=== PATIENT | male | born 1970 | race Caucasian/White ===

== ENCOUNTER 2017-11-28 16:14 | Inpatient (IN) | payer OTHER ==
[2017-11-28 16:33] VITALS: BMI 22.8
--- NOTE | 2017-11-28 16:46 | HP ---
COWS - Scale Resting Pulse: 0= [place] 80 or Below Sweatin= Beads of Sweat on Face Restless Observation: 3= Extraneous Movement Pupil Size: 0= Normal to Room Light Bone or Joint Aches: 1= Mild Discomfort Runny Nose/ Eye Tearin= Runny Nose/Eyes GI Upset > 30mins: 1= Stomach Cramp Tremor Observation: 2= Slight Tremor Visible Yawning Observation: 4= Several Times/Minute Anxiety or Irritability: 2=Irritable/Anxious Goose Flesh Skin: 3=Piloerection COWS Score: 21 CIWA Score - CIWA Score Nausea/Vomitin Muscle Tremors: 4-Moderate,w/Arms Extend Anxiety: 4-Mod. Anxious/Guarded Agitation: 1-Slight > Activity Paroxysmal Sweats: 4-Forehead w/Sweat Beads Orientation: 0-Oriented Tacttile Disturbances: 0-None Auditory Disturbances: 1-Very Mild Visual Disturbances: 1-Very Mild Sensitivity Headache: 1-Very Mild CIWA-Ar Total Score: 18 Admission ROS BHS - HPI Chief Complaint: I am here for detox Allergies/Adverse Reactions: Allergies Allergy/AdvReac Type Severity Reaction Status Date / Time No Known Allergies Allergy Verified 11/28/17 17:04 History of Present Illness: 47 yo male with alcohol, heroin, and cocaine dependence, with occasional use of PCP. Reports hx of 20+ year of alcohol and heroin use. Last detox and rehab 17 years ago at [facility]. Longest period of sobriety, one year. Exam Limitations: No Limitations - Ebola screening Have you traveled outside of the country in the last 21 days: No Have you had contact with anyone from an Ebola affected area: No Have you been sick,other than usual withdrawal symptoms: No Do you have a fever: No - Review of Systems Constitutional: Chills, Loss of Appetite, Night Sweats, Changes in sleep EENT: reports: Tearing Respiratory: reports: No Symptoms reported Cardiac: reports: Lightheadedness GI: reports: Poor Appetite : reports: No Symptoms Reported Musculoskeletal: reports: Joint Pain Integumentary: reports: No Symptoms Reported Neuro: reports: Headache Endocrine: reports: Intolerance to Cold Hematology: reports: No Symptoms Reported Psychiatric: reports: Orientated x3, Anxious, Depressed Other Systems: Reviewed and Negative Patient History - Patient Medical History Hx Anemia: No Hx Asthma: Yes (no medications ) Hx Chronic Obstructive Pulmonary Disease (COPD): No Hx Cancer: No Hx Cardiac Disorders: No Hx Congestive Heart Failure: No Hx Hypertension: No Hx Hypercholesterolemia: No Hx Pacemaker: No HX Cerebrovascular Accident: No Hx Seizures: No Hx Dementia: No Hx Diabetes: No Hx Gastrointestinal Disorders: No Hx Liver Disease: No Hx Genitourinary Disorders: No Hx Sexually Transmitted Disorders: No Hx Renal Disease (ESRD): No Hx Thyroid Disease: No Hx Human Immunodeficiency Virus (HIV): No (Last test Oct 2017 [facility]) Hx Hepatitis C: No Hx Depression: No Hx Suicide Attempt: No Hx Bipolar Disorder: No Hx Schizophrenia: No - Patient Surgical History Past Surgical History: No Hx Neurologic Surgery: No Hx Cataract Extraction: No Hx Cardiac Surgery: No Hx Lung Surgery: Yes (hx of puncture lung ) Hx Breast Surgery: No Hx Breast Biopsy: No Hx Abdominal Surgery: No Hx Appendectomy: No Hx Cholecystectomy: No Hx Genitourinary Surgery: No Hx Section: No Hx Orthopedic Surgery: No Hx Hysterectomy: No Anesthesia Reaction: No - PPD History Previous Implant?: Yes Documented Results: Negative w/o proof PPD to be Administered?: Yes - Reproductive History Patient is a Female of Child Bearing Age (11 -55 yrs old): No - Smoking Cessation Smoking history: Current some day smoker Have you smoked in the past 12 months: Yes Aproximately how many cigarettes per day: 5 Cigars Per Day: 0 Hx Chewing Tobacco Use: No Initiated information on smoking cessation: Yes 'Breaking Loose' booklet given: 11/28/17 - Substance & Tx. History Hx Alcohol Use: Yes Hx Substance Use: Yes Substance Use Type: Cocaine, Heroin, Opiates Hx Substance Use Treatment: Yes - Substances Abused Alcohol Route: Oral Frequency: Daily Amount used: 1 - 4 beers Age of first use: 16 Date of Last Use: 11/27/17 Heroin Route: Inhalation Frequency: Daily Amount used: 8 - 10 bags Age of first use: 23 Date of Last Use: 11/27/17 Cocaine Route: Inhalation Frequency: 1-3 times last 30 days Amount used: $10 Age of first use: 39 Date of Last Use: 11/27/17 PCP Route: Smoking Frequency: 1-3 times last 30 days Amount used: 1 blunt, $10 Age of first use: 20 Date of Last Use: 11/16/17 Family Disease History - Family Disease History Family Disease History: Heart Disease: Father (, [place] / no drug use ), Other: Father, Mother (alieve and well / no drug use ) Admission Physical Exam [facility] - Vital Signs Vital Signs: Vital Signs - 24 hr 11/28/17 16:29 Temperature 97.5 F L Pulse Rate 68 Respiratory 20 Rate Blood Pressure 124/57 - Physical General Appearance: Yes: No Apparent Distress, Appropriately Dressed, Sweating, Anxious HEENTM: Yes: Hearing grossly Normal, Normal ENT Inspection, Normocephalic, Normal Voice, FERNIE, Pharynx Normal Respiratory: Yes: Chest Non-Tender, Lungs Clear, Normal Breath Sounds, No Respiratory Distress, No Accessory Muscle Use Neck: Yes: Within Normal Limits, No masses,lesions,Nodules, Trachea in good position Breast: Yes: Breast Exam Deferred Cardiology: Yes: Regular Rhythm, Regular Rate, S1, S2 Abdominal: Yes: Normal Bowel Sounds, Non Tender, Flat, Soft Genitourinary: Yes: Within Normal Limits Back: Yes: Within Normal Limits Musculoskeletal: Yes: full range of Motion, Gait Steady, Joint swelling Extremities: Yes: Within Normal Limits, Normal Capillary Refill, Normal Inspection, Normal Range of Motion, Non-Tender, Tremors Neurological: Yes: product management analyst II-XII NML intact, Fully Oriented, Alert, Motor Strength 5/5, Normal Response, Depressed Affect Integumentary: Yes: Normal Color, Dry, Warm, Diaphoresis, Other (poor skin turgor) Lymphatic: Yes: Within Normal Limits - Diagnostic (1) Alcohol dependence with uncomplicated withdrawal Current Visit: Yes Status: Acute (2) Opioid dependence with withdrawal Current Visit: Yes Status: Acute (3) Heroin dependence Current Visit: Yes Status: Acute (4) PCP abuse, episodic Current Visit: Yes Status: Acute (5) Cocaine abuse Current Visit: Yes Status: Acute (6) Dehydration Current Visit: Yes Status: Acute (7) Anxious mood Current Visit: Yes Status: Acute (8) Depressed mood Current Visit: Yes Status: Acute Cleared for Admission [facility] - Detox or Rehab [facility] Level of Care: Medically Managed Detox Regimen/Protocol: Methadone/Librium [facility] Breath Alcohol Content Breath Alcohol Content: 0 Urine Drug Screen - Results Drug Screen Negative: No Urine Drug Screen Results: KYM-Cocaine, OPI-Opiates, PCP-Phencyclidine, OXY- Oxycodone
[2017-11-28] MEDS ORDERED: hydrOXYzine PAMOATE 50 MG CAPSULE (FP) PO PRN (17:04)
[2017-11-28] MEDS ORDERED: NICOTINE POLACRILEX 2 MG GUM BC PRN (17:04)
[2017-11-28] MEDS ORDERED: chlordiazePOXIDE HCL 25 MG CAPSULE PO ONE (17:04)
[2017-11-28] MEDS ORDERED: LOPERAMIDE HCL 2 MG CAPSULE PO PRN (17:04)
[2017-11-28] MEDS ORDERED: chlordiazePOXIDE HCL 25 MG CAPSULE PO PRN (17:04)
[2017-11-28] MEDS ORDERED: MAGNESIUM HYDROX 2400MG/30ML ORAL SUSPENSION 30 ML CUP PO PRN (17:04)
[2017-11-28] MEDS ORDERED: guaiFENesin/D-METHORPHAN HB 10 ML UNIT-DOSE CUPS PO PRN (17:04)
[2017-11-28] MEDS ORDERED: MENTHOL/PHENOL 1 EACH UD MM PRN (17:04)
[2017-11-28] MEDS ORDERED: ACETAMINOPHEN 325 MG TABLET (FP) PO PRN (17:04)
[2017-11-28] MEDS ORDERED: IBUPROFEN 400 MG TABLET (FP) PO PRN (17:04)
[2017-11-28] MEDS ORDERED: METHADONE HCL 10 MG TABLET (FOR DETOX USE ONLY) PO ONE ×2 (17:04→23:00)
[2017-11-28] MEDS ORDERED: P-EPHED 60MG/TRIPROLIDI 2.5MG TABLET PO PRN (17:04)
[2017-11-28] MEDS ORDERED: MAG HYDROX/AL HYDROX/SIMETH 30 ML UNIT-DOSE CUP PO PRN (17:04)
[2017-11-28] MEDS ORDERED: MAGNESIUM CITRATE 300 ML BOTTLE PO PRN (17:04)
[2017-11-28] MEDS ORDERED: METHADONE HCL 10 MG TABLET (FOR DETOX USE ONLY) ONE (21:51)
[2017-11-28] MEDS: NICOTINE 14 MG/24 HOURS TOPICAL PATCH TD SCH (21:52)
[2017-11-28] MEDS: chlordiazePOXIDE HCL 25 MG CAPSULE PO SCH (22:00)
[2017-11-28] MEDS: THIAMINE HCL 100 MG TABLET (FP) PO SCH (22:00)
[2017-11-28 23:43] LABS: URINE APPEARANCE CLEAR; URINE BILIRUBIN NEGATIVE (NEGATIVE); URINE BLOOD NEGATIVE (NEGATIVE); URINE COLOR YELLOW; URINE GLUCOSE (UA) NEGATIVE (NEGATIVE); URINE KETONE NEGATIVE (NEGATIVE); URINE LEUK ESTERASE NEGATIVE (NEGATIVE); URINE NITRITE NEGATIVE (NEGATIVE); URINE PROTEIN NEGATIVE (NEGATIVE); URINE UROBILINOGEN NEGATIVE mg/dL (0.2-1.0)
[2017-11-29] MEDS: chlordiazePOXIDE HCL 25 MG CAPSULE PO SCH ×4 (06:05→22:36)
--- NOTE | 2017-11-29 08:49 | EKG ---
Test Reason : Blood Pressure : / mmHG Vent. Rate : 050 BPM Atrial Rate : 050 BPM P-R Int : 128 ms QRS Dur : 082 ms QT Int : 442 ms P-R-T Axes : 072 065 056 degrees QTc Int : 402 ms SINUS BRADYCARDIA OTHERWISE NORMAL ECG NO PREVIOUS ECGS AVAILABLE Confirmed by Omar Anderson ([id number]) on 11/29/2017 8:48:42 AM Referred By: Jose Luis Maria Confirmed By:Omar Anderson
--- NOTE | 2017-11-29 09:18 | CONSULT ---
[facility] Psychiatric Consult - Data Date of interview: 11/29/17 Admission source: [facility] Identifying data: This is 47 years old male with no psychiatric hospitalization hisatory intoxicated with: Alcohol, Opioids, Heroin, PCP, Cocaine Substance Abuse History: Smoking history: Current some day smoker. Have you smoked in the past 12 months: Yes. Aproximately how many cigarettes per day: 5. Cigars Per Day: 0. Hx Chewing Tobacco Use: No. Initiated information on smoking cessation: Yes. 'Breaking Loose' booklet given: 11/28/17. - Substance & Tx. History. Hx Alcohol Use: Yes. Hx Substance Use: Yes. Substance Use Type : Cocaine, Heroin, Opiates. Hx Substance Use Treatment: Yes. - Substances Abused. Alcohol. Route: Oral. Frequency: Daily. Amount used: 1 - 4 beers. Age of first use: 16. Date of Last Use: 11/27/17. Heroin. Route: Inhalation. Frequency: Daily. Amount used: 8 - 10 bags. Age of first use: 23. Date of Last Use: 11/27/17. Cocaine. Route: Inhalation. Frequency: 1- 3 times last 30 days. Amount used: $10. Age of first use: 39. Date of Last Use: 11/27/17. PCP. Route: Smoking. Frequency: 1-3 times last 30 days. Amount used: 1 blunt, $10. Age of first use: 20. Date of Last Use: 11/16/17 Medical History: Denies Psychiatric History: Alex purvis history of anxiety and depression, reports no medications taking prior to admission Physical/Sexual Abuse/Trauma History: Denies Additional Comment: Observation. Detox Unit Care Protocol Mental Status Exam - Mental Status Exam Alert and Oriented to: Person Cognitive Function: Fair Patient Appearance: Unkempt Mood: Sad Affect: Flat Patient Behavior: Sedated Speech Pattern: Delayed Voice Loudness: Mildly Loud Thought Process: Circumstantial Thought Disorder: Being Controlled Hallucinations: Denies Suicidal Ideation: Denies Homicidal Ideation: Denies Insight/Judgement: Fair Sleep: Difficulty falling asleep Appetite: Fair Muscle strength/Tone: Mild Hypotonicity Gait/Station: Shuffling Additional Comments: Observation. Detox Unit Care Protocol Psychiatric Findings - Problem List ([place] 1, 2,3) (1) Drug-induced mood disorder Current Visit: Yes Status: Acute (2) Alcohol dependence with uncomplicated withdrawal Current Visit: Yes Status: Acute (3) Anxious mood Current Visit: Yes Status: Acute (4) Heroin dependence Current Visit: Yes Status: Acute (5) Opioid dependence with withdrawal Current Visit: Yes Status: Acute (6) Cocaine abuse Current Visit: Yes Status: Chronic (7) PCP abuse, episodic Current Visit: Yes Status: Chronic - Initial Treatment Plan Initial Treatment Plan: Observation. Detox Unit Care Protocol
[2017-11-29] MEDS ORDERED: METHADONE HCL 10 MG TABLET (FOR DETOX USE ONLY) PO SCH (10:00)
[2017-11-29] MEDS: PRENATAL VITAMINS W/ FOLIC ACID TABLET (FP) PO SCH (10:06)
[2017-11-29] MEDS: NICOTINE 14 MG/24 HOURS TOPICAL PATCH TD SCH (10:07)
[2017-11-29 10:23] LABS: HEMATOCRIT 42.4 % (35.4-49); HEMOGLOBIN 13.6 GM/dL (11.7-16.9); MCH 29.7 pg (25.7-33.7); MCHC 32.1 g/dl (32.0-35.9); MEAN CELL VOLUME 92.5 fl (80-96); PLATELET COUNT 118 K/MM3 (134-434); RBC 4.59 M/mm3 (4.00-5.60); RDW 13.7 % (11.9-15.9); WHITE BLOOD COUNT 8.4 K/mm3 (4.0-10.0)
[2017-11-29 10:26] LABS: ALBUMIN 3.3 g/dl (3.4-5.0); ANION GAP 3 (8-16); BLOOD UREA NITROGEN 18 mg/dL (7-18); CALCIUM 8.1 mg/dL (8.5-10.1); CHLORIDE 112 mmol/L (98-107); CO2 27 mmol/L (21-32); GLUCOSE,RANDOM 93 mg/dL (74-106); POTASSIUM 4.2 mmol/L (3.5-5.1); SODIUM 142 mmol/L (136-145)
[2017-11-29 10:30] LABS: ALK PHOS 76 U/L (45-117); BILIRUBIN,TOTAL 0.9 mg/dL (0.2-1.0); CREATININE 0.8 mg/dL (0.7-1.3); SGOT/AST 16 U/L (15-37); SGPT/ALT 24 U/L (12-78)
--- NOTE | 2017-11-29 13:19 | PN ---
[facility] CIWA - CIWA Score Nausea/Vomitin Muscle Tremors: 4-Moderate,w/Arms Extend Anxiety: 4-Mod. Anxious/Guarded Agitation: 3 Paroxysmal Sweats: 3 Orientation: 0-Oriented Tacttile Disturbances: 0-None Auditory Disturbances: 0-None Visual Disturbances: 0-None Headache: 0-None Present CIWA-Ar Total Score: 16 S COWS - Scale Resting Pulse: 0= [place] 80 or Below Sweatin=Flushed/Facial Moisture Restless Observation: 1= Difficult to Sit Still Pupil Size: 0= Normal to Room Light Bone or Joint Aches: 1= Mild Discomfort Runny Nose/ Eye Tearin= Nasal Congestion GI Upset > 30mins: 2= Nausea/Diarrhea Tremor Observation of Outstretched Hands: 2= Slight Tremor Visible Yawning Observation: 0= None Anxiety or Irritability: 2=Irritable/Anxious Goose Flesh Skin: 0=Smooth Skin COWS Score: 11 S Progress Note (SOAP) Subjective: Tremors, sleep disturbance, Objective: 11/29/17 13:18 Vital Signs Temperature 98.1 F 11/29/17 09:23 Pulse Rate 54 L 11/29/17 09:23 Respiratory Rate 16 11/29/17 09:23 Blood Pressure 147/57 11/29/17 09:23 O2 Sat by Pulse Oximetry (%) Laboratory Last Values WBC 8.4 K/mm3 (4.0-10.0) 11/29/17 07:00 RBC 4.59 M/mm3 (4.00-5.60) 11/29/17 07:00 Hgb 13.6 GM/dL (11.7-16.9) 11/29/17 07:00 Hct 42.4 % (35.4-49) 11/29/17 07:00 MCV 92.5 fl (80-96) 11/29/17 07:00 MCH 29.7 pg (25.7-33.7) 11/29/17 07:00 MCHC 32.1 g/dl (32.0-35.9) 11/29/17 07:00 RDW 13.7 % (11.9-15.9) 11/29/17 07:00 Plt Count 118 K/MM3 (134-434) L 11/29/17 07:00 MPV 12.0 fl (7.5-11.1) H 11/29/17 07:00 Sodium 142 mmol/L (136-145) 11/29/17 07:00 Potassium 4.2 mmol/L (3.5-5.1) 11/29/17 07:00 Chloride 112 mmol/L (98-107) H 11/29/17 07:00 Carbon Dioxide 27 mmol/L (21-32) 11/29/17 07:00 Anion Gap 3 (8-16) L 11/29/17 07:00 BUN 18 mg/dL (7-18) 11/29/17 07:00 Creatinine 0.8 mg/dL (0.7-1.3) 11/29/17 07:00 Creat Clearance w eGFR > 60 (>60) 11/29/17 07:00 Random Glucose 93 mg/dL (74-106) 11/29/17 07:00 Calcium 8.1 mg/dL (8.5-10.1) L 11/29/17 07:00 Total Bilirubin 0.9 mg/dL (0.2-1.0) 11/29/17 07:00 AST 16 U/L (15-37) 11/29/17 07:00 ALT 24 U/L (12-78) 11/29/17 07:00 Alkaline Phosphatase 76 U/L (45-117) 11/29/17 07:00 Total Protein 6.0 g/dl (6.4-8.2) L 11/29/17 07:00 Albumin 3.3 g/dl (3.4-5.0) L 11/29/17 07:00 Urine Color Yellow 11/28/17 23:20 Urine Appearance Clear 11/28/17 23:20 Urine pH 6.0 (5.0-8.0) 11/28/17 23:20 Ur Specific [place] 1.025 (1.001-1.035) 11/28/17 23:20 Urine Protein Negative (NEGATIVE) 11/28/17 23:20 Urine Glucose (UA) Negative (NEGATIVE) 11/28/17 23:20 Urine Ketones Negative (NEGATIVE) 11/28/17 23:20 Urine Blood Negative (NEGATIVE) 11/28/17 23:20 Urine Nitrite Negative (NEGATIVE) 11/28/17 23:20 Urine Bilirubin Negative (NEGATIVE) 11/28/17 23:20 Urine Urobilinogen Negative mg/dL (0.2-1.0) 11/28/17 23:20 Ur Leukocyte Esterase Negative (NEGATIVE) 11/28/17 23:20 RPR Titer Nonreactive (NONREACTIVE) 11/29/17 07:00 HIV 1&2 Antibody Screen Negative 11/29/17 07:00 HIV P24 Antigen Negative 11/29/17 07:00 Labs noted Assessment: 11/29/17 13:19 withdrawal sx No acute distress noted Plan: continue detox
[2017-11-29] MEDS: THIAMINE HCL 100 MG TABLET (FP) PO SCH (22:36)
[2017-11-30] MEDS: chlordiazePOXIDE HCL 25 MG CAPSULE PO SCH ×2 (05:10→10:10)
[2017-11-30 09:34] VITALS: BP 110/70; PULSE 70; TEMP 97.8
[2017-11-30] MEDS ORDERED: METHADONE HCL 5 MG TABLET (FOR DETOX USE ONLY) PO SCH (10:00)
[2017-11-30] MEDS: NICOTINE 14 MG/24 HOURS TOPICAL PATCH TD SCH (10:11)
[2017-11-30] MEDS: PRENATAL VITAMINS W/ FOLIC ACID TABLET (FP) PO SCH (10:11)
--- NOTE | 2017-11-30 13:28 | DS ---
[facility] Detox Discharge Summary Admission Date: 11/28/17 Discharge Date: 11/30/17 - History Present History: Alcohol Dependence, Opioid Dependence Pertinent Past History: see below - Physical Exam Results Vital Signs: Vital Signs Temperature 97.8 F 11/30/17 09:34 Pulse Rate 70 11/30/17 09:34 Respiratory Rate 16 11/30/17 09:34 Blood Pressure 110/70 11/30/17 09:34 O2 Sat by Pulse Oximetry (%) Pertinent Admission Physical Exam Findings: aware of risks of ama departure - Diagnosis (1) Alcohol dependence with uncomplicated withdrawal Status: Acute (2) Anxious mood Status: Acute (3) Depressed mood Status: Acute (4) Drug-induced mood disorder Status: Acute (5) Heroin dependence Status: Acute (6) Opioid dependence with withdrawal Status: Acute (7) Cocaine abuse Status: Chronic (8) PCP abuse, episodic Status: Chronic - AMA Did Patient Leave Against Medical Advice: Yes
[2017-11-30] MEDS ORDERED: chlordiazePOXIDE 5 MG CAPSULE PO SCH (23:00)
[2017-12-01] MEDS ORDERED: chlordiazePOXIDE HCL 10 MG CAPSULE PO SCH (23:00)
[2017-12-02] MEDS ORDERED: METHADONE HCL 10 MG TABLET (FOR DETOX USE ONLY) PO SCH (10:00)
[2017-12-03] MEDS ORDERED: METHADONE HCL 5 MG TABLET (FOR DETOX USE ONLY) PO SCH (06:00)
== END 2017-11-30 12:30 | disposition left against medical advice (07) | DRG 770 ==
LOC: YASAS 16:14 → Y6N 19:37
PROVIDERS: ADMIT Internal Medicine; ATTEND Internal Medicine
PROC: HZ2ZZZZ Detoxification Services for Substance Abuse Treatment (ICD-10-PCS; principal; 2017-11-28)
DX: F11.23 Opioid dependence with withdrawal (principal); F10.230 Alcohol dependence with withdrawal, uncomplicated; F16.10 Hallucinogen abuse, uncomplicated; F14.10 Cocaine abuse, uncomplicated; F17.210 Nicotine dependence, cigarettes, uncomplicated; F39 Unspecified mood [affective] disorder; F19.24 Other psychoactive substance dependence with psychoactive substance-induced mood disorder; E86.0 Dehydration
CPT/HCPCS: 36415; 80053; 81003; 85027; 86593; 86803; 87389; 93005; 93010